=== PATIENT | male | born 1950 | race Caucasian/White ===

== ENCOUNTER 2020-10-19 20:03 | Emergency (ER) | payer MEDICAID ==
[~2020-10-19] VITALS: Ht 167.6 cm; Wt 82.7 kg
[2020-10-19 20:10] VITALS: Ht 167.6 cm; Wt 82.7 kg
[2020-10-19 21:07] LABS: PLATELET COUNT 292 x10^3mcL (152-348)
[2020-10-19 21:18] LABS: CALCIUM 9.4 mg/dL (8.5-10.1); CARBON DIOXIDE 25.8 mmol/L (21-32); CHLORIDE SERUM 98 mmol/L (98-107); CREATININE SERUM 1.1 mg/dL (0.7-1.3); GLUCOSE SERUM 342 mg/dL (74-106); POTASSIUM SERUM 4.1 mmol/L (3.5-5.1); SODIUM SERUM 132 mmol/L (136-145)
[2020-10-19 21:23] LABS: ALBUMIN 3.4 g/dL (3.4-5.0); ALKALINE PHOSPHATASE 81 U/L (46-116); ALT/SGPT 31 U/L (16-63); AST/SGOT 11 U/L (15-37); BILIRUBIN TOTAL 0.3 mg/dL (0.20-1.00); CHOLESTEROL 221 mg/dL (<200); HDL CHOLESTEROL 41 mg/dL (40-60); TOTAL PROTEIN, SERUM 7.4 g/dL (6.4-8.2)
[2020-10-19 21:33] LABS: microscopic required? NO
[2020-10-19 21:57] LABS: urine erythrocyte NEGATIVE (NEGATIVE)
[2020-10-20 00:34] VITALS: BP 125/83
== END 2020-10-20 00:34 | disposition home or self-care (01) ==
LOC: ED 20:03
PROVIDERS: Emergency Medicine
DX: M54.2 Cervicalgia (principal); M25.551 Pain in right hip; M25.552 Pain in left hip; E11.65 Type 2 diabetes mellitus with hyperglycemia; I10 Essential (primary) hypertension; Z20.828 Contact with and (suspected) exposure to other viral communicable diseases
CPT/HCPCS: 87804; J1885; J7030; U0003